=== PATIENT | female | born 1980 | race American Indian/Alaskan Native ===

== ENCOUNTER 2017-01-27 19:09 | Emergency (ER) | payer OTHER ==
[2017-01-27] MEDS ORDERED: CATAPRES ONE (19:37)
[2017-01-27] MEDS ORDERED: CATAPRES PO ONE (19:47)
[2017-01-27] MEDS ORDERED: HCTZ PO ONE (22:02)
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
[2017-01-28 00:15] VITALS: BP 156/115
== END 2017-01-28 00:30 | disposition home or self-care (01) ==
LOC: ED 19:09
DX: I10 Essential (primary) hypertension (principal); V89.2XXA Person injured in unspecified motor-vehicle accident, traffic, initial encounter; W22.11XA Striking against or struck by driver side automobile airbag, initial encounter; Y93.89 Activity, other specified; Y99.9 Unspecified external cause status; Y92.410 Unspecified street and highway as the place of occurrence of the external cause
CPT/HCPCS: 70450; 72125; 81025

== ENCOUNTER 2018-07-14 18:49 | Emergency (ER) | payer BC, OTHER ==
[2018-07-14] MEDS ORDERED: CATAPRES ONE (19:16)
[2018-07-14] MEDS ORDERED: PROVENTIL IH ONE ×2 (19:16→19:28)
[2018-07-14] MEDS ORDERED: CATAPRES PO ONE ×2 (19:28→20:16)
--- NOTE | 2018-07-14 20:04 | XRay Report ---
FINAL REPORT EXAM: XR CHEST ROUTINE 2V HISTORY: Shortness of breath COMPARISON: None available. FINDINGS:: Frontal and lateral views of the chest obtained. Cardiac silhouette is within normal limits. No focal consolidation or effusion. No pneumothorax. Visualized bony thorax is grossly intact. IMPRESSION:: No acute findings.
--- NOTE | 2018-07-14 20:12 | Emergency Department Report ---
ED General Adult HPI - General Chief complaint: Dyspnea/Respdistress Stated complaint: WHEEZING/MADY Time Seen by Provider: 07/14/18 19:52 Source: patient Mode of arrival: Ambulatory Limitations: No Limitations - History of Present Illness Initial comments: Patient is 37 years old female with history of hypertension. Patient is noncompliant with medication. She stated that she ran out of her hydrochlorothiazide one year ago and she did not refill it because she did not have insurance. Patient presented to the ER complaining of 4 days history of cough, low-grade fever and congestion. Patient denied any chest pain, shortness of breath, nausea or vomiting. In triage patient blood pressure is 225/119. Patient given clonidine 0.1 mg. Patient denying any weakness, numbness or tingling sensation, headache or bowel or bladder incontinence. - Related Data Previous Rx's Medication Instructions Recorded Last Taken Type Acetaminophen [Acetaminophen TAB] 500 mg PO Q6HR PRN #25 tablet 01/28/17 Unknown Rx Cyclobenzaprine [Flexeril] 10 mg PO TID PRN #12 tablet 01/28/17 Unknown Rx hydroCHLOROthiazide [HCTZ] 25 mg PO QDAY #30 tablet 01/28/17 Unknown Rx Allergies Allergy/AdvReac Type Severity Reaction Status Date / Time No Known Allergies Allergy Verified 01/27/17 19:46 ED Review of Systems ROS: Stated complaint: WHEEZING/MADY Other details as noted in HPI Comment: All other systems reviewed and negative Constitutional: denies: chills, fever Respiratory: cough, wheezing. denies: orthopnea, shortness of breath, SOB with exertion, SOB at rest Cardiovascular: denies: chest pain, palpitations, dyspnea on exertion Gastrointestinal: denies: abdominal pain, nausea, vomiting, diarrhea, constipation, hematemesis, hematochezia Genitourinary: denies: urgency, dysuria Musculoskeletal: denies: back pain Neurological: denies: headache, weakness, numbness, paresthesias, confusion, abnormal gait ED Past Medical Hx - Past Medical History Hx Hypertension: Yes Additional medical history: Morbid Obesity - Surgical History Hx Cholecystectomy: Yes Additional Surgical History: Tubal Ligation - Social History Smoking Status: Never Smoker Substance Use Type: None - Medications Home Medications: Home Medications Medication Instructions Recorded Confirmed Last Taken Type Acetaminophen [Acetaminophen TAB] 500 mg PO Q6HR PRN #25 tablet 01/28/17 Unknown Rx Cyclobenzaprine [Flexeril] 10 mg PO TID PRN #12 tablet 01/28/17 Unknown Rx hydroCHLOROthiazide [HCTZ] 25 mg PO QDAY #30 tablet 01/28/17 Unknown Rx ED Physical Exam - General Limitations: No Limitations General appearance: alert, in no apparent distress - Head Head exam: Present: atraumatic, normocephalic, normal inspection - Eye Eye exam: Present: normal appearance, PERRL - ENT ENT exam: Present: normal exam, normal orophraynx, mucous membranes moist - Neck Neck exam: Present: normal inspection, full ROM. Absent: tenderness, meningismus, lymphadenopathy - Respiratory Respiratory exam: Present: normal lung sounds bilaterally, wheezes. Absent: respiratory distress, rales, rhonchi, stridor, chest wall tenderness, accessory muscle use, decreased breath sounds, prolonged expiratory - Cardiovascular Cardiovascular Exam: Present: regular rate, normal rhythm, normal heart sounds - GI/Abdominal GI/Abdominal exam: Present: soft, normal bowel sounds. Absent: distended, tenderness, guarding, rebound, rigid, organomegaly, mass, bruit, pulsatile mass , hernia - Extremities Exam Extremities exam: Present: normal inspection, full ROM, normal capillary refill. Absent: pedal edema, calf tenderness - Back Exam Back exam: Present: normal inspection, full ROM. Absent: tenderness, CVA tenderness (R), CVA tenderness (L), muscle spasm, paraspinal tenderness, rash noted - Neurological Exam Neurological exam: Present: alert, oriented X3, CN II-XII intact, normal gait, reflexes normal - Skin Skin exam: Present: warm, intact, normal color ED Course Vital Signs 07/14/18 07/14/18 07/14/18 19:21 19:30 20:04 Temperature 100.4 F H Pulse Rate 100 H 100 H 104 H Respiratory 18 14 Rate Blood Pressure 225/119 225/119 Blood Pressure [Left] O2 Sat by Pulse 98 98 Oximetry 07/14/18 07/14/18 07/14/18 20:07 20:08 20:09 Temperature 99.8 F H Pulse Rate 104 H 104 H Respiratory 17 17 Rate Blood Pressure Blood Pressure 164/107 [Left] O2 Sat by Pulse 98 Oximetry 07/14/18 07/14/18 07/14/18 20:15 20:19 20:30 Temperature Pulse Rate 115 H 107 H 99 H Respiratory 12 22 Rate Blood Pressure 132/117 168/100 162/92 Blood Pressure [Left] O2 Sat by Pulse 97 98 Oximetry 07/14/18 20:45 Temperature Pulse Rate 96 H Respiratory 20 Rate Blood Pressure 149/92 Blood Pressure [Left] O2 Sat by Pulse 100 Oximetry ED Medical Decision Making - Lab Data Result diagrams: 07/14/18 19:58 07/14/18 19:58 - EKG Data -: EKG Interpreted by Sc EKG shows normal: sinus rhythm Rate: tachycardia - EKG Data Interpretation: no acute changes - Radiology Data Radiology results: report reviewed Referring Physician: ELLI CLAROS Patient Name: JOE LARSON Date of : 1980 Sex: Female Report Date: 2018-07-14 Report Status: Finalized Findings [facility] [address] [place] [address] XRay Report Signed Patient: JOE LARSON MR#: [id number] : 1980 Acct:[id number] Age/Sex: 37 / F ADM Date: 07/14/18 Loc: ED Attending Dr: Ordering Physician: ELLI CLAROS Date of Service: 07/14/18 Procedure(s): XR chest routine 2V Accession Number(s): [id number] cc: ELLI CLAROS Fluoro Time In Minutes: FINAL REPORT EXAM: XR CHEST ROUTINE 2V HISTORY: Shortness of breath COMPARISON: None available. FINDINGS:: Frontal and lateral views of the chest obtained. Cardiac silhouette is within normal limits. No focal consolidation or effusion. No pneumothorax. Visualized bony thorax is grossly intact. IMPRESSION:: No acute findings. Transcribed By: LMA Dictated By: AMBER GOYAL MD Electronically Authenticated By: AMBER GOYAL MD Signed Date/Time: 07/14/182002 DD/ 02 TD/TT: 07/14/182002 - Medical Decision Making Patient is 37 years old female with history of hypertension. Patient is noncompliant with medication. She stated that she ran out of her hydrochlorothiazide one year ago and she did not refill it because she did not have insurance. Patient presented to the ER complaining of 4 days history of cough, low-grade fever and congestion. Patient denied any chest pain, shortness of breath, nausea or vomiting. In triage patient blood pressure is 225/119. Patient given clonidine 0.1 mg. Patient denying any weakness, numbness or tingling sensation, headache or bowel or bladder incontinence. Patient stated that she is feeling much better. X-ray did not show any evidence of pneumonia. EKG is negative for acute finding. Troponin is negative. Patient blood pressure respond very well to clonidine. Patient can' t blood pressure is 149/92. I believe patient's symptoms is related to acute asthmatic bronchitis. I will start patient on Mr. Max and I will start her on hydrochlorothiazide 25 mg daily and Norvasc 5 mg daily and advised her to follow up with primary care physician [facility]. Critical care attestation.: If time is entered above; I have spent that time in minutes in the direct care of this critically ill patient, excluding procedure time. ED Disposition Clinical Impression: Asthmatic bronchitis, Malignant hypertension Disposition: TO HOME OR SELFCARE Is pt being admited?: No Condition: Stable Instructions: Chronic Bronchitis (ED), Hypertension (ED) Referrals: PRIMARY CAREMD [Primary Care Provider] - 3-5 Days [facility] [Provider Group] - 3-5 Days
[2018-07-14 20:13] LABS: Basophils % (Auto) 0.8 % (0.0-1.8); Eosinophils # (Auto) 0.2 K/mm3 (0.0-0.4); Eosinophils % (Auto) 2.9 % (0.0-4.3); Hematocrit 37.6 % (30.3-42.9); Hemoglobin 12.7 gm/dl (10.1-14.3); Lymphocytes # (Auto) 2.6 K/mm3 (1.2-5.4); Lymphocytes % (Auto) 41.1 % (13.4-35.0); Mean Corpuscular HGB Conc 34 % (30-34); Mean Corpuscular Hemoglobin 29 pg (28-32); Mean Corpuscular Volume 87 fl (79-97); Monocytes # (Auto) 0.6 K/mm3 (0.0-0.8); Monocytes % (Auto) 9.7 % (0.0-7.3); Platelet Count 260 K/mm3 (140-440); Red Blood Count 4.33 M/mm3 (3.65-5.03); Red Cell Distribution Width 14.3 % (13.2-15.2)
[2018-07-14 20:30] LABS: BUN/Creatinine Ratio 10; Blood Urea Nitrogen 7 mg/dL (7-17); Calcium 8.6 mg/dL (8.4-10.2); Hemolysis Index 37
[2018-07-14 22:19] VITALS: BP 149/96
== END 2018-07-14 22:18 | disposition home or self-care (01) ==
LOC: ED 18:49
DX: J45.909 Unspecified asthma, uncomplicated (principal); I10 Essential (primary) hypertension; E66.01 Morbid (severe) obesity due to excess calories; Z90.49 Acquired absence of other specified parts of digestive tract; Z98.51 Tubal ligation status
CPT/HCPCS: 36415; 71046; 80048; 83880; 84484; 84703; 85025; 93005; 93010; 94640

== ENCOUNTER 2021-04-05 13:26 | Emergency (ER) | payer BC ==
[2021-04-05 15:07] VITALS: BP 175/114
--- NOTE | 2021-04-05 15:07 | Event Note ---
ED Screening Note Date of service: 04/05/21 Time: 15:07 ED Screening Note: Patient complains of fatigue, body aches, chills, cough, and shortness of breath starting today Has been recently diagnosed with COVID-19 Patient has history of hypertension Denies hemoptysis This initial assessment/diagnostic orders/clinical plan/treatment(s) is/are subject to change based on patients health status, clinical progression and re- assessment by fellow clinical providers in the ED. Further treatment and workup at subsequent clinical providers discretion. Patient/guardian urged not to elope from the ED as their condition may be serious if not clinically assessed and managed. Initial orders include: Chest x-ray
== END 2021-04-05 19:00 | disposition left against medical advice (07) ==
LOC: ED 13:26
DX: Z00.8 Encounter for other general examination (principal); Z53.21 Procedure and treatment not carried out due to patient leaving prior to being seen by health care provider